=== PATIENT | female | born 1940 | race Caucasian/White ===

== ENCOUNTER 2017-07-10 14:59 | Outpatient (CLI) | payer MEDICARE, BC ==
[2017-07-10 15:29] LABS: #Eosinphils 0.1 thou/uL (0.0-0.7); #Lymphocytes 1.1 thou/uL (1.20-3.40); #Monocytes 1.3 thou/uL (0.11-0.59); %Basophils 0.1 % (0.0-1.0); %Eosinophils 0.8 % (0.0-10.0); %Lymphocytes 8.8 % (21.0-51.0); %Monocytes 10.2 % (0.0-10.0); Hematocrit 41.3 % (36.0-47.0); Mean Platelet Volume 7.9 fL (7.4-10.4); Red Blood Cell (RBC) Count 4.57 mill/uL (4.20-5.40); White Blood Cell (WBC) Count 12.5 thou/uL (4.8-10.8)
[2017-07-10 15:51] LABS: ALT (SGPT) 11 U/L (8-55); AST (SGOT) 15 U/L (5-34); Alkaline Phosphatase 107 U/L (40-150); Anion Gap 12 mmol/L (10-20); BUN (Urea Nitrogen) 14 mg/dL (9.8-20.1); Bilirubin, Total 1.3 mg/dL (0.2-1.2); Calc. Creatinine Clearance 0 mL/min (70-130); Carbon Dioxide 28 mmol/L (23-31); Chloride 92 mmol/L (98-107); Estimated GFR-MDRD 71; Globulin 3.2 g/dL (2.4-3.5)
== END 2017-07-10 15:00 | disposition home or self-care (01) ==
LOC: LABBT 14:59
PROVIDERS: ATTEND Surgery
DX: Z01.818 Encounter for other preprocedural examination (principal); L03.90 Cellulitis, unspecified
CPT/HCPCS: 80053; 85025; 93005; 93010

== ENCOUNTER 2017-07-11 06:06 | Day surgery (SDC) | payer MEDICARE, BC ==
[2017-07-10 15:21] VITALS: BMI 43.4
[2017-07-11] MEDS ORDERED: Fentanyl 100 MCG/2 ML VIAL ONE ×2 (06:51→08:51)
[2017-07-11] MEDS ORDERED: Non-Formulary Medication 1 EACH PO PRN (09:28)
[2017-07-11] MEDS ORDERED: Promethazine HCl 25 MG/ML VIAL IM/IV PRN (09:28)
[2017-07-11] MEDS ORDERED: Ondansetron HCl/PF 4 MG/2 ML Vial IVP PRN (09:28)
--- NOTE | 2017-07-11 10:04 | OP ---
DATE OF PROCEDURE: 07/11/2017 PREOPERATIVE DIAGNOSIS: Left lower medial thigh abscess. SURGEON: Handy Parr M.D. PROCEDURE: Incision and drainage. INDICATIONS: A 76-year-old female who developed a pimple on her medial lower left thigh that festere d and became progressively more swollen and painful and erythematous. An ultrasound showed an absces s. 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 PROCEDURE IN DETAIL: After informed consent was obtained, the patient was taken to the operating [facility] and given general endotracheal anesthesia. She was placed in the supine position. Her leg was pre pped and draped in the usual fashion. An elliptical incision was performed releasing purulent fluid under pressure. Cultures were obtained. This ellipse was excised. Hemostasis achieved with electro cautery. The cavity was pulse irrigated with 3 liters of saline. Hemostasis achieved with electroca utery, packed open with Betadine gauze covered by dry gauze and wrapped with a Kerlix, and a 6-inch A ce. The patient tolerated the procedure well and transferred to recovery in good condition. Sponge and needle count verified correct x2.
[2017-07-11] MEDS ORDERED: Propofol 200 MG/20 ML VIAL ONE (14:49)
[2017-07-11] MEDS ORDERED: ePHEDrine/0.9% NaCl/PF SYRINGE 50 mg/10 ml ONE (14:49)
[2017-07-11] MEDS ORDERED: Lidocaine 1% PF 5 ML VIAL ONE (14:49)
[2017-07-11] MEDS ORDERED: Dexamethasone 20 MG/5 ML VIAL ONE (14:49)
[2017-07-11] MEDS ORDERED: Ondansetron HCl/PF 4 MG/2 ML Vial ONE (14:49)
[2017-07-11] MEDS ORDERED: Succinylcholine Chloride 20 MG/ML 10 ml SYRINGE FS ONE (14:49)
== END 2017-07-11 10:30 | disposition home or self-care (01) ==
LOC: SDC 06:06
PROVIDERS: ATTEND Surgery
PROC: 0J9P0ZX Drainage of Left Lower Leg Subcutaneous Tissue and Fascia, Open Approach, Diagnostic (ICD-10-PCS; principal; 2017-07-11)
DX: L02.416 Cutaneous abscess of left lower limb (principal); E66.9 Obesity, unspecified; Z68.41 Body mass index [BMI] 40.0-44.9, adult; Z88.0 Allergy status to penicillin; Z88.2 Allergy status to sulfonamides; Z88.8 Allergy status to other drugs, medicaments and biological substances; Z79.899 Other long term (current) drug therapy; Z90.49 Acquired absence of other specified parts of digestive tract; Z90.710 Acquired absence of both cervix and uterus; Z96.653 Presence of artificial knee joint, bilateral; Z98.890 Other specified postprocedural states
CPT/HCPCS: 87070; 87077; 87186; 87205; 96374; J1100; J2001; J2405; J2704; J3010; J3370